=== PATIENT | female | born 1970 | race Caucasian/White ===

== ENCOUNTER 2023-11-20 16:36 | Emergency (ER) | payer OTHER, SELFPAY ==
[2023-11-20 16:46] VITALS: BP 134/90; PULSE 69; RESP 16; TEMP 36.2; O2SAT 99
--- NOTE | 2023-11-20 16:57 | ED.SKABFB ---
HPI - Skin/Abscess/Foreign Bdy General Chief complaint: Skin/Abscess/Foreign Body Stated complaint: Rash and itching Time Seen by Provider: 11/20/23 16:58 Source: patient and RN notes reviewed Mode of arrival: ambulatory Limitations: no limitations History of Present Illness HPI narrative: 53 year old female presents with concern for itchy rash. Reports she used a self tanning towelette last night after showering and woke up this morning with a rash under her left breast in on her face. Reports she took Benadryl this morning. She denies any swollen lips, swollen tongue, trouble breathing. She denies any history of similar reaction. She reports the rash on her face has decreased quite a bit. MD complaint: rash Related Data Home Medications Medication Instructions Recorded Confirmed atorvastatin 40 mg tablet 40 mg PO DAILY 11/20/23 11/20/23 valacyclovir 500 mg tablet 500 mg PO DAILY 11/20/23 11/20/23 Allergies Allergy/AdvReac Type Severity Reaction Status Date / Time No Known Allergies Allergy Verified 11/20/23 17:05 Review of Systems Review of Systems: CONSTITUTIONAL: Denies malaise, chills, sweats, or fever. EYES: Denies redness, or discharge. ENT: Denies rhinorrhea, congestion, swollen lips, swollen tongue CARDIOVASCULAR: Denies chest pain, palpitations, or edema. RESPIRATORY: Denies cough or dyspnea. GASTROINTESTINAL: Denies abdominal pain, nausea, vomiting SKIN: Reports itchy rash on her face and under her left breast MUSCULOSKELETAL: Denies joint pain or myalgia. NEUROLOGIC: Denies headache. All systems reviewed & are unremarkable except as noted in HPI and below PMFSH Comments At time of signature, agree with nursing past medical, surgical, social and family history. There is no relevant family history pertinent to the presenting complaint Exam Narrative: GENERAL: Well-appearing, well-nourished, and in no acute distress. HEAD: Normocephalic, atraumatic. EYES: PERRLA, conjunctivae clear, and EOMI. ENT: Mucous membranes moist. Oropharynx without edema, erythema or lesions. NECK: Supple. No lymphadenopathy CHEST: Clear to auscultation. No respiratory distress. HEART: Regular rate and rhythm. SKIN: Warm, dry. Raised red rash noted under the left breast, 1 spot on the right cheek NEURO: Alert and oriented x3. PSYCH: Normal mood and affect Course Course Emergency Course: Patient is aware of diagnosis, understands and agrees to treatment plan. Anticipatory guidance given. Patient agrees to follow-up as directed and is aware of reasons to seek care at the emergency department. Portions of this record may have been created with voice recognition software Level of Care: Express Care Visit Vital Signs Vital signs: Vital Signs Temperature 97.1 F L 11/20/23 16:46 Pulse Rate 69 11/20/23 16:46 Respiratory Rate 16 11/20/23 16:46 Blood Pressure 134/90 11/20/23 16:46 Pulse Oximetry 99 11/20/23 16:46 Oxygen Delivery Room Air 11/20/23 16:46 Temperature 97.1 F L 11/20/23 16:46 Pulse Rate 69 11/20/23 16:46 Respiratory Rate 16 11/20/23 16:46 Blood Pressure 134/90 11/20/23 16:46 Pulse Oximetry 99 11/20/23 16:46 Oxygen Delivery Room Air 11/20/23 16:46 Reviewed. MDM - Skin/Abscess/Foreign Bdy MDM Narrative Medical decision making narrative: Does not appear at this time to be erythema multiforme, bullous, SJS, TEN; no evidence at this time to suggest RMSF, endocarditis or Lyme disease; patient looks well, nontoxic and is tolerating oral intake; no neurologic signs or symptoms; no headache, photophobia or neck pain; afebrile; appropriate for initial outpatient treatment; discussed the importance of follow-up, patient agrees; question, viral exanthema, contact dermatitis, allergic dermatitis, eczema, urticaria, contact dermatitis. No soft palate or uvula edema, no tongue, lip edema or other mucosal involvement, no respiratory compromise, no stridor, no wheezing, n
== END 2023-11-20 17:10 | disposition home or self-care (01) ==
PROVIDERS: Emergency Provider Nurse Practitioner
DX: L25.9 Unspecified contact dermatitis, unspecified cause (principal); E78.00 Pure hypercholesterolemia, unspecified
CPT/HCPCS: 99203; G0463

== ENCOUNTER 2024-05-05 10:30 | Outpatient (CLI) | payer OTHER, SELFPAY | END 2024-05-05 10:31 | disposition home or self-care (01) | LOC: ANHLAB 10:32 | PROVIDERS: Visit Provider Urology | DX: Z87.440 Personal history of urinary (tract) infections (principal) | CPT/HCPCS: 87086 ==

== ENCOUNTER 2024-05-09 03:02 | Day surgery (SDC) | payer OTHER, SELFPAY ==
[2024-05-02 13:48] VITALS: BMI 33.0
--- NOTE | 2024-05-02 13:57 | PC.NURSE ---
Report to the Outpatient Waiting Room, entrance under the green pavilion located off [facility], at time _0700_ on date _[id number]_. Planned Procedure Time: _0900_.? Time changes happen often and if your time is changed the preop area will call you the afternoon before. - You and your visitor will be asked to self-screen and do not enter if you have any COVID symptoms. Please call surgeon if you need to reschedule. - A mask is optional within the hospital at this time. Patients may have clear liquids (water, carbonated beverages, clear teas, apple juice) until 3 hours prior to surgery with a maximum of 20 ounces. - No food from midnight until time of surgery and no smoking Take only the following medications with a SIP of water on the morning of surgery: ___None DO NOT STOP ANY OF YOUR OTHER PRESCRIPTION MEDICATIONS PRIOR TO SURGERY EXCEPT THE FOLLOWING Medications to discontinue per physician __None____ Please no make-up, nail arabic, hairspray, perfume, deodorant, or body powder the day of surgery.? No jewelry (including any body piercings) or valuables the day of surgery, leave them at home.? Please take a shower or bath the night before, or the morning of, surgery with an antibacterial soap.? Wear comfortable, loose fitting clothing.? - Jewelry must be removed prior to entering the operating room.? Rings and piercings that are not removed may be cut off. - The hospital will not accept responsibility for valuables.? - Please leave all valuables, including medications, at home the day of surgery. If you are going home after surgery, a licensed taxi driver supervisor must drive you home.? - NO public transportation without another adult if you receive anesthesia. - We recommend that an adult stay with you for 24 hours following discharge. - We also recommend that you do not drive, make important decision, drink alcoholic beverages, or take any drugs that were not prescribed by your health care provider for at least 24 hours after your discharge time. Follow any additional instructions given to you from your surgeon. Telephone instructions given to __Dora___and asked if any additional questions and then verbalized understanding. Patient advised to call surgeon office or pre surgery nurse liaison [phone] if any additional questions.
--- NOTE | 2024-05-03 15:56 | PM.IMHP ---
H&P: HPI History of Present Illness Date/Time: 05/03/24 15:56 Chief Complaint: ISD Narrative: mixed incontinence. Previous sling. presents for bulking agent Review of Systems Review of Systems: All systems reviewed & are unremarkable except as noted in HPI and below PMFSH Social History Social History Smoking packs per day: 1 Smoking cigarettes per day: 20.0 Years smoked: 15 Smoking pack-years: 15.00 Smoking status: Former smoker Tobacco type: cigarettes Smoking end date: 05/02/98 Alcohol intake: current Living arrangements: with family Spiritual care concerns: No Meds Home Medications and Allergies Home Medications Medication Instructions Recorded Confirmed Type atorvastatin 40 mg tablet 40 mg PO DAILY 11/20/23 05/02/24 History valacyclovir 500 mg tablet 500 mg PO DAILY 11/20/23 05/02/24 History omeprazole 40 mg capsule,delayed 40 mg PO DAILY 05/02/24 05/02/24 History release oxybutynin chloride 10 mg 10 mg PO DAILY 05/02/24 05/02/24 History tablet,extended release 24 hr rizatriptan 10 mg disintegrating 10 mg PO DAILY PRN migrane 05/02/24 05/02/24 History tablet Allergies Allergy/AdvReac Type Severity Reaction Status Date / Time No Known Allergies Allergy Verified 05/02/24 13:44 Exam Narrative: NAD A+O x3 normal breathing No mesh exposure Assessment and Plan Assessment and plan (1) Intrinsic sphincter deficiency (ISD): Code(s): N36.42 - Intrinsic sphincter deficiency (ISD) Status: Acute Assessment and Plan: Cysto/bulking agent
--- NOTE | 2024-05-09 04:47 | WPDHPUPDATE1 ---
History and Physical Update Update Date/Time: 05/09/24 04:47 History and Physical has been reviewed, including an updated exam of the patient. There are NO changes in the patient's condition. Risks, benefits, and alternatives have been discussed and questions answered. Patient agrees to proceed with procedure.
[2024-05-09] MEDS: LACTATED RINGERS 1,000 ML 30 ML IV CONT (06:30)
[2024-05-09 06:45] VITALS: BP 122/80; PULSE 64; RESP 14; TEMP 36.2; O2SAT 100; BMI 33.3
--- NOTE | 2024-05-09 08:14 | WPDANESEPPF ---
Anes - Initial Pre Proc Eval Procedure: Operation Date: 05/09/24 09:00 Proposed Procedures p Cystoscopy, Injection Bulking Agent - Dejuan Dacosta MD Date/Time: 05/09/24 08:14 Surgeon: Dejuan Dacosta MD Pre Op Diagnosis: ID Patient Data Age: 54 Gender: F Height: 1.57 m Weight: 82.6 kg Last Vital Signs Temp 36.2 C L 05/09/24 06:45 Pulse 64 05/09/24 06:45 Resp 14 05/09/24 06:45 BP 122/80 05/09/24 06:45 Pulse Ox 100 05/09/24 06:45 O2 Del Method Room Air 05/09/24 06:45 Allergies Allergy/AdvReac Type Severity Reaction Status Date / Time No Known Allergies Allergy Verified 05/02/24 13:44 Home Medications Medication Instructions Recorded Confirmed Type atorvastatin 40 mg tablet 40 mg PO DAILY 11/20/23 05/02/24 History valacyclovir 500 mg tablet 500 mg PO DAILY 11/20/23 05/02/24 History omeprazole 40 mg capsule,delayed 40 mg PO DAILY 05/02/24 05/02/24 History release rizatriptan 10 mg disintegrating 10 mg PO DAILY PRN migrane 05/02/24 05/02/24 History tablet vibegron 75 mg tablet (Gemtesa) 75 mg PO DAILY #30 tabs 05/09/24 Rx Patient hx anesthesia problems: none Family hx anesthesia problems: none Results Review: All pre-operative results and documents have been reviewed as part of the pre-operative evaluation. [facility] Past Medical History Medical History (Updated 05/09/24 @ 08:14 by Jamie Schwartz MD) Hyperlipidemia Obesity Social History Social History Smoking packs per day: 1 Smoking cigarettes per day: 20.0 Years smoked: 15 Smoking pack-years: 15.00 Smoking status: Former smoker Tobacco type: cigarettes Smoking end date: 05/02/98 Alcohol intake: current Living arrangements: with family Spiritual care concerns: No Anes - Eval Final PreProcedure Day of Procedure 05/09/24 08:14 Patient weight: obese Heart: regular rate and rhythm Lungs: clear to auscultation Airway: Mallampati scale class II Neurological: alert and oriented Last oral intake: >/= 8 hours ASA classification: II Emergent: no Anesthetic plan: proceed Anesthesia type and monitoring: general GIVS and standard monitoring Results Review: All pre-operative results and documents have been reviewed as part of the pre-operative evaluation. Informed Consent: The patient's anesthetic plan and its attendant risks and benefits were discussed with the patient/family/POA. Questions were solicited and answers provided to the satisfaction of the patient/family/POA.
[2024-05-09] MEDS: ceFAZolin 2 GM/D5W 50 ML 2 GM/50 ML BAG IVPB (08:57)
[2024-05-09] MEDS: KETOROLAC 15 MG/ML VIAL (*BKC) IV PUSH (09:05)
[2024-05-09] MEDS: LIDOCAINE HCL 2% GEL UROJET 10 ML PKG MUCOUS MEM (09:09)
--- NOTE | 2024-05-09 09:15 | W.PM.PROC2 ---
Procedure Note - Detailed Date of Procedure 05/09/24 Pre-op Diagnosis Intrinsic sphincter deficiency Post-op Diagnosis Same Procedure Performed Cystoscopy with suburethral injection of implant material Surgeon Dejuan Dacosta MD Anesthesia MAC and Local (Uro jet) Indications She had a previous urethral sling. She has recurrent stress incontinence. She presents today for a bulking agent. She understands risks of bleeding, infection, urinary retention. She understands the expected success rate. She understands it will not help her overactive bladder symptoms. She agrees to proceed Findings Uncomplicated bulking agent Description of Procedure She was correctly identified. Informed consent obtained. She from the operating room. She was given monitored anesthesia care. Uro jet was applied. She was prepped and draped in dorsal lithotomy position. Time-out performed. She was given appropriate perioperative antibiotics. Her bladder was normal by cystoscopy without tumors or abnormalities. No foreign bodies in the bladder urethra. I chose a spot in the mid urethra 2 cm distal to bladder neck. I injected bulking agent circumferentially forming several pillows clapping the urethra. I used 2 syringes. During the procedure she did cough and there was no leakage. I left the bladder partially full. She was awakened transferred to PACU in stable condition. Estimated Blood Loss 0 Packing No Pathology None sent Complications No immediate complications Condition Stable Disposition PACU
[2024-05-09 09:17] VITALS: BP 107/65; PULSE 78; RESP 15; O2SAT 99
[2024-05-09 09:45] VITALS: BP 123/82; PULSE 71; RESP 18; O2SAT 96
[2024-05-09] MEDS: oxyCODONE HCL (*CRX) 5 MG TAB IR PO (09:48)
[2024-05-09 10:15] VITALS: BP 139/81; PULSE 71; RESP 16; O2SAT 100
[2024-05-09 10:25] VITALS: BP 134/83; PULSE 77; RESP 18
== END 2024-05-09 10:30 | disposition home or self-care (01) ==
PROVIDERS: Visit Provider Urology
PROC: 3E0K8GC Introduction of Other Therapeutic Substance into Genitourinary Tract, Via Natural or Artificial Opening Endoscopic (ICD-10-PCS; CPT 51715; principal; 2024-05-09 09:00)
DX: N36.42 Intrinsic sphincter deficiency (ISD) (principal); N39.3 Stress incontinence (female) (male); E78.5 Hyperlipidemia, unspecified; E66.9 Obesity, unspecified; Z68.33 Body mass index [BMI] 33.0-33.9, adult; Z87.891 Personal history of nicotine dependence
CPT/HCPCS: 51715; A9270; J0690; J1885; J2003; J2250; J2704; J3010; J7120; L8606